=== PATIENT | female | born 1995 | race African-American/Black ===

== ENCOUNTER 2016-03-23 15:34 | Emergency (ER) | payer MEDICAID ==
[~2016-03-23 15:34] MED LIST: DEPO150I IM
[2016-03-23 15:36] VITALS: BP 125/72; PULSE 100; RESP 12; TEMP 98.1; O2SAT 100
--- NOTE | 2016-03-23 17:08 | PD ---
HPI Chief Complaint: Skin Problem Time Seen by Provider: 17:04 Travel History International Travel<30 days: No Contact w/Intl Traveler<30days: No Traveled to known affect area: No History of Present Illness HPI Patient comes in complaining of painful bump in the cleft of her buttocks on the right. Patient states she first noticed it about a week ago has become larger more painful. Pain is worse with sitting or palpation. She denies anything making it better or radiation. Patient states she took some leftover amoxicillin as well as ibuprofen with minimal to no relief of her symptoms. Patient states she's had something like since past several years ago but does not recall if it had to be cut open at that time. PFSH Past Medical History Medical History: Denies Significant Hx Developmental Delay: No Immunizations Current: Yes ?: Not Past Surgical History Abdominal Surgery: Yes (UMBILICAL HERNIA REPAIR) Social History Alcohol Use: No Tobacco Use: No Substance Use: No Allergies-Medications (Allergen,Severity, Reaction): Coded Allergies: Morphine (Verified Adverse Reaction, Intermediate, itchyness, 03/23/16) Reported Meds & Prescriptions Reported Meds & Active Scripts Active [place] (Hydrocodone-Acetaminophen) 5-325 mg Tab 1 Tab PO Q8HR PRN Naprosyn (Naproxen) 500 Mg Tab 500 Mg PO Q12HR PRN Bactrim DS (Sulfamethoxazole-Trimethoprim) 800-160 Mg Tab 1 Tab PO BID Review of Systems Except as stated in HPI: all other systems reviewed are Neg Physical Exam Narrative GENERAL: Well-developed, overly nourished, in no acute distress, and non-ill appearing. SKIN: Warm and dry. Draining pilonidal cyst noted just right to the cleft of the buttocks. It is tender to palpation with mild induration. There is fluctuation drainage noted. His exam was performed presence of a female nurse at all times. HEAD: Atraumatic. Normocephalic. EYES: Pupils equal and round. EOMI. No scleral icterus. No injection or drainage. ENT: No nasal bleeding or discharge. Mucous membranes pink and moist. NECK: Trachea midline. Supple. No nuclear rigidity. RESPIRATORY: No accessory muscle use. No respiratory distress. MUSCULOSKELETAL: No obvious deformities. No clubbing. No cyanosis. No edema. Full range of motion. NEUROLOGICAL: Awake and alert. No obvious cranial nerve deficits. Motor grossly within normal limits. Normal speech. PSYCHIATRIC: Appropriate mood and affect; insight and judgment normal. Data Data Last Documented VS Vital Signs Date Time Temp Pulse Resp B/P Pulse Ox O2 Delivery O2 Flow Rate FiO2 03/23/16 15:36 98.1 100 12 125/72 100 Room Air Orders Wound Culture And Gram Stain (03/23/16 16:59) MDM Medical Decision Making Medical Screen Exam Complete: Yes Emergency Medical Condition: Yes Differential Diagnosis Pilonidal cyst, pilonidal abscess, abscess, cellulitis, other Narrative Course Patient in no obvious distress upon re-evaluation. Patient was asked if they wanted to speak to my attending, which the patient did not wish to do at this time. Any questions/concerns in reference to patient diagnosis/condition discussed and clarified prior to patient's discharge. Reinforced sheer importance of close follow up with patient's primary physician or primary care clinic. Instructed patient to return to ED immediately, if symptoms return/ worsen. Pt showed understanding of above instructions. Further instructions and recommendations were detailed in discharge paperwork. Pt ambulated without difficulty out of ED at discharge. Diagnosis Primary Impression: Pilonidal cyst Referrals: Hero Acosta MD Patient Instructions: General Instructions, Pilonidal Cyst (ED) Additional Instructions: Follow-up with your primary care physician or return here in 2 days for recheck. Follow up with general surgeon or a colorectal surgeon for definitive treatment. Take all medication as prescribed. Apply warm compresses to affected area to continue to facilitate drainage. Return to the emergency department if symptoms get worse. Med/Other Pt SpecificInfo: Prescription(s) given Scripts Hydrocodone-Acetaminophen ([place])5-325 mg Tab1 Tab PO Q8HR PRN (PAIN GREATER THAN 7) #7 TAB Ref 0 Prov:Glen Gil MD 03/23/16 Naproxen (Naprosyn)500 Mg [id number] Mg PO Q12HR PRN (PAIN SCALE 1 TO 10) #14 TAB Ref 0 Prov:Glen Gil MD 03/23/16 Sulfamethoxazole-Trimethoprim (Bactrim DS)800-160 Mg Tab1 Tab PO BID #20 TAB Ref 0 Prov:Glen Gil MD 03/23/16 Disposition: 01 DISCHARGE HOME Condition: Stable Jose Roberto Sarmiento Mar 23, 2016 17:08
[2016-03-23] MEDS ORDERED: NAPR500 PO (17:09)
[2016-03-23] MEDS ORDERED: NORC5TAB PO (17:09)
[2016-03-23] MEDS ORDERED: BACT800T5 PO (17:09)
[2016-05-20] MEDS ORDERED: DEPO150I IM (15:44)
[2016-08-13] MEDS ORDERED: DEPO150I IM ×2 (14:26→14:27)
[2016-08-14] MEDS ORDERED: DEPO150I IM (10:45)
== END 2016-03-23 17:50 | disposition home or self-care (01) ==
LOC: NEPB 15:34
DX: L05.91 Pilonidal cyst without abscess (principal)
CPT/HCPCS: 86403; 87070; 99283

== ENCOUNTER 2016-05-14 10:16 | Emergency (ER) | payer MEDICAID ==
[~2016-05-14] VITALS: Ht 170.2 cm; Wt 100.0 kg
[~2016-05-14 10:16] MED LIST changes: +BACT800T5 PO; -DEPO150I IM; +NAPR500 PO; +NORC5TAB PO
[2016-05-14 10:19] VITALS: BP 118/74; PULSE 90; RESP 20; TEMP 98.1; O2SAT 97
[2016-05-14] MEDS ORDERED: FLUT1SPR9 EACH NARE (11:23)
[2016-05-14] MEDS ORDERED: AMOX875T PO (11:23)
--- NOTE | 2016-05-14 11:27 | PD ---
HPI Chief Complaint: Cold / Flu Symptoms Time Seen by Provider: 11:28 Travel History International Travel<30 days: No Contact w/Intl Traveler<30days: No Traveled to known affect area: No History of Present Illness HPI 20-year-old Afro-[place]ic female presents the emergency department with approximately 5 day history of upper respiratory symptoms including head congestion, headache, postnasal drip, sore throat, ear pain, decreased hearing bilaterally. Patient has had a cough Especially when she lays down at night. Patient denies shortness of breath or wheezing, and denies nausea, vomiting, diarrhea. Patient is allergic to morphine. PFSH Past Medical History Developmental Delay: No Immunizations Current: Yes Past Surgical History Abdominal Surgery: Yes (UMBILICAL HERNIA REPAIR) Social History Alcohol Use: No Tobacco Use: No Substance Use: No Allergies-Medications (Allergen,Severity, Reaction): Coded Allergies: Morphine (Verified Adverse Reaction, Intermediate, itchyness, 05/14/16) Reported Meds & Prescriptions Reported Meds & Active Scripts Active Flonase Allergy Relief Children Nasal [place] (Fluticasone Nasal [place]) 50 Mcg/ Act [place] 2 [place] EACH NARE DAILY 50 mcg/spray Amoxicillin 875 Mg Tab 875 Mg PO BID [place] (Hydrocodone-Acetaminophen) 5-325 mg Tab 1 Tab PO Q8HR PRN Naprosyn (Naproxen) 500 Mg Tab 500 Mg PO Q12HR PRN Bactrim DS (Sulfamethoxazole-Trimethoprim) 800-160 Mg Tab 1 Tab PO BID Review of Systems Except as stated in HPI: all other systems reviewed are Neg General / Constitutional: No: Fever, Chills Eyes: No: Visual changes HENT: Positive: Headaches, Sore Throat, Rhinitis, Rhinorrhea, Congestion, Earache, No: Vertigo, Lightheadedness, Nosebleed, Neck Stiffness, Neck Pain, Gingival Bleeding, Dental Difficulties, Ear Discharge Cardiovascular: No: Chest Pain or Discomfort Respiratory: Positive: Cough, No: Shortness of Breath, Wheezing, Sneezing Gastrointestinal: No: Nausea, Vomiting, Diarrhea, Abdominal Pain Genitourinary: No: Dysuria Musculoskeletal: No: Pain Skin: No Rash Neurologic: No: Weakness Psychiatric: No: Depression Endocrine: No: Polydipsia Hematologic/Lymphatic: No: Easy Bruising Physical Exam Narrative GENERAL: Patient appears ill but not septic. SKIN: Warm and dry. Normal color. Normal turgor. HEAD: Atraumatic. Normocephalic. EYES: Pupils equal and round. No scleral icterus. No injection or drainage. ENT: No nasal bleeding or discharge. Mucous membranes pink and moist. Patient is sinus tenderness in both frontal and maxillary sinuses. TMs are dull red and bulging bilaterally. There is no perforation. Pharynx appears cobblestoned and inflamed with postnasal drip present. Airway is patent. Uvula is midline. No significant tonsillitis. NECK: Trachea midline. Supple and nontender without significant lymphadenopathy. CARDIOVASCULAR: Regular rate and rhythm. RESPIRATORY: No accessory muscle use. Clear to auscultation. Breath sounds equal bilaterally. MUSCULOSKELETAL: Extremities without clubbing, cyanosis, or edema. No obvious deformities. NEUROLOGICAL: Awake and alert. No obvious cranial nerve deficits. Motor grossly within normal limits. Five out of 5 muscle strength in the arms and legs. Normal speech. PSYCHIATRIC: Appropriate mood and affect; insight and judgment normal. Data Data Last Documented VS Vital Signs Date Time Temp Pulse Resp B/P Pulse Ox O2 Delivery O2 Flow Rate FiO2 05/14/16 10:19 98.1 90 20 118/74 97 Room Air MDM Medical Decision Making Medical Screen Exam Complete: Yes Emergency Medical Condition: Yes Differential Diagnosis Upper extremity infection. Sinusitis. Otitis media. Cerumen impaction. Narrative Course Patient is medically stable at time of exam. Patient treated for sinusitis and otitis media with amoxicillin 875 twice a day 10 days. Patient is to use Flonase nasal spray 2 sprays each nostril daily as well. Patient take idnu-nhq-jumnina decongestant such as Sudafed to help with her congestion. Patient should follow-up with her primary care physician if symptoms do not improve or return to emergency department as needed. Diagnosis Primary Impression: Sinusitis Qualified Code: J01.40 - Acute non-recurrent pansinusitis Additional Impression: Otitis media Qualified Code: H66.003 - Acute suppurative otitis media of both ears without spontaneous rupture of tympanic membranes, recurrence not specified Referrals: Primary Care Physician Patient Instructions: General Instructions, Otitis Media (ED), Sinusitis (ED) Additional Instructions: Patient treated for sinusitis and otitis media with amoxicillin 875 twice a day 10 days. Patient is to use Flonase nasal spray 2 sprays each nostril daily as well. Patient take qqtb-pkh-gbtzbro decongestant such as Sudafed to help with her congestion. Patient should follow-up with her primary care physician if symptoms do not improve or return to emergency department as needed. Med/Other Pt SpecificInfo: Prescription(s) given Scripts Fluticasone Nasal [place] (Flonase Allergy Relief Children Nasal [place])50 Mcg/Act Spray2 [place] EACH NARE DAILY #1 BOTTLE 50 mcg/spray Prov:Kai Iraheta MD 05/14/16 Amoxicillin 875 Mg [id number] Mg PO BID #20 TAB Prov:Kai Iraheta MD 05/14/16 Disposition: 01 DISCHARGE HOME Condition: Stable Agus Reagan May 14, 2016 11:27
[2016-05-20] MEDS ORDERED: DEPO150I IM (15:44)
[2016-08-13] MEDS ORDERED: DEPO150I IM ×2 (14:26→14:27)
[2016-08-14] MEDS ORDERED: DEPO150I IM (10:45)
== END 2016-05-14 11:36 | disposition home or self-care (01) ==
LOC: NEPB 10:16
DX: J32.9 Chronic sinusitis, unspecified (principal); H66.93 Otitis media, unspecified, bilateral
CPT/HCPCS: 99283

== ENCOUNTER 2016-07-15 11:43 | Emergency (ER) | payer MEDICAID, OTHER ==
[~2016-07-15] VITALS: Ht 170.2 cm; Wt 91.0 kg
[~2016-07-15 11:43] MED LIST changes: +AMOX875T PO; +FLUT1SPR9 EACH NARE
[2016-07-15 11:45] VITALS: BP 130/75; PULSE 118; RESP 17; TEMP 98.2; O2SAT 98
--- NOTE | 2016-07-15 11:47 | PD ---
Physical Exam Time Seen by Provider: 11:45 Narrative 20 y/o female presents for evaluation of 1 day duration of generalized abdominal pain, nausea and vomiting. Vital signs reviewed. Seen at triage desk. Awaiting bed placement. Data Data Last Documented VS Vital Signs Date Time Temp Pulse Resp B/P Pulse Ox O2 Delivery O2 Flow Rate FiO2 07/15/16 11:45 98.2 118 17 130/75 98 MDM Medical Record Reviewed: Yes Supervised Visit with JESSICA: Jesus Briscoe July 15, 2016 11:47
[2016-07-15] MEDS ORDERED: SODIUM CHLOR 0.9% 1000 ML INJ 1,000 ML IV SCH (12:28)
[2016-07-15] MEDS ORDERED: SODIUM CHLORIDE 0.9% FLUSH 10 ML FLUSH IV FLUSH PRN (12:30)
[2016-07-15] MEDS ORDERED: KETOROLAC TROMETHAMINE 30 MG/ML (IVP) VIAL IVP ONE (12:30)
[2016-07-15] MEDS ORDERED: ONDANSETRON HCL 4 MG/2 ML VIAL IVP ONE (12:30)
[2016-07-15] MEDS ORDERED: HYDROmorphone HCL PF 1 MG/ML VIAL IVS ONE (12:30)
[2016-07-15 12:32] VITALS: RESP 16; O2SAT 99
--- NOTE | 2016-07-15 12:33 | PD ---
HPI Chief Complaint: Abdominal Pain Time Seen by Provider: 12:07 Travel History International Travel<30 days: No Contact w/Intl Traveler<30days: No Traveled to known affect area: No History of Present Illness HPI The patient is a 20-year-old after Citizen Of [place] female who presents emergency department for nausea, vomiting, and right upper quadrant abdominal pain. The patient states her symptoms started yesterday afternoon with right upper quadrant abdominal pain. The patient then developed nausea and subsequent vomiting last night. The pain is located mostly in epigastrium and right upper quadrant, nonradiating, this issue nausea/vomiting. The patient denies any diarrhea, dysuria, frequency, urgency, or vaginal discharge. The patient's last mental cycle was 3-4 months ago, she does not have menstrual cycles normally, as she is currently on Depo. The patient denies . The patient denies any previous abdominal surgeries. She denies any associated fever, chills, or sweats. Symptoms are moderate without any alleviating or exacerbating factors. PFSH Past Medical History Developmental Delay: No Diminished Hearing: No Genitourinary: Yes (HX UTI) Immunizations Current: Yes Tetanus Vaccination: < 5 Years Influenza Vaccination: No ?: Not LMP: 02/2016 : 1 Para: 1 Past Surgical History Abdominal Surgery: Yes (UMBILICAL HERNIA REPAIR) Social History Alcohol Use: No Tobacco Use: No Substance Use: No Allergies-Medications (Allergen,Severity, Reaction): Coded Allergies: Morphine (Verified Allergy, Intermediate, ITCHING, 07/15/16) Reported Meds & Prescriptions Reported Meds & Active Scripts Active No Active Prescriptions or Reported Medications Review of Systems Except as stated in HPI: all other systems reviewed are Neg General / Constitutional: No: Fever Cardiovascular: No: Chest Pain or Discomfort Respiratory: No: Shortness of Breath Gastrointestinal: Positive: Nausea, Vomiting, Abdominal Pain, No: Diarrhea Genitourinary: No: Dysuria, Discharge, Vaginal Bleeding Musculoskeletal: No: Myalgias, Arthralgias Skin: No Rash Physical Exam Narrative GENERAL: Awake, alert, pleasant 20-year-old female who appears her stated age and is in no acute respiratory distress. SKIN: Focused skin assessment warm/dry. HEAD: Atraumatic. Normocephalic. EYES: No injection or drainage. ENT: No nasal bleeding or discharge. Mucous membranes pink and moist. NECK: Trachea midline. No JVD. CARDIOVASCULAR: Regular rate and rhythm. No murmur appreciated. RESPIRATORY: No accessory muscle use. Clear to auscultation. Breath sounds equal bilaterally. GASTROINTESTINAL: Abdomen soft, tender palpation right upper quadrant and epigastrium. No rebound tenderness, guarding, or rigidity. Back: No CVA tenderness. MUSCULOSKELETAL: No obvious deformities. No clubbing. No cyanosis. No edema. NEUROLOGICAL: Awake and alert. No obvious cranial nerve deficits. Motor grossly within normal limits. Normal speech. PSYCHIATRIC: Appropriate mood and affect; insight and judgment normal. Data Data Last Documented VS Vital Signs Date Time Temp Pulse Resp B/P Pulse Ox O2 Delivery O2 Flow Rate FiO2 07/15/16 14:18 98.1 78 16 113/74 100 Room Air Orders Complete Blood Count With Diff (07/15/16 12:28) Comprehensive Metabolic Panel (07/15/16 12:28) Lipase (07/15/16 12:28) Urinalysis - C+S If Indicated (07/15/16 12:28) Iv Access Insert/Monitor (07/15/16 12:28) Ecg Monitoring (07/15/16 12:28) Oximetry (07/15/16 12:28) Ondansetron Inj (Zofran Inj) (07/15/16 12:30) Sodium Chlor 0.9% 1000 Ml Inj (Ns 1000 M (07/15/16 12:28) Sodium Chloride 0.9% Flush (Ns Flush) (07/15/16 12:30) Ketorolac Inj (Toradol Inj) (07/15/16 12:30) Hydromorphone Pf Inj (Dilaudid Pf Inj) (07/15/16 12:30) Ed Urine Pregnancytest Poc (07/15/16 12:28) Us Abdomen Gallbladder (07/15/16 ) Urine Culture (07/15/16 12:00) Labs Laboratory Tests Test 07/15/16 07/15/16 12:00 12:30 Urine Color YELLOW Urine Turbidity CLOUDY Urine pH 6.0 Urine Specific [place] 1.039 Urine Protein 30 mg/dL Urine Glucose (UA) NEG mg/dL Urine Ketones NEG mg/dL Urine Occult Blood TRACE Urine Nitrite NEG Urine Bilirubin NEG Urine Urobilinogen LESS THAN 2.0 MG/DL Urine Leukocyte Esterase TRACE Urine RBC 2 /hpf Urine WBC 6 /hpf Urine Squamous Epithelial 7 /hpf Cells Urine Transitional Epithelial <1 /hpf Cells Urine Amorphous Sediment FEW Urine Bacteria MOD /hpf Urine Mucus MANY /lpf Microscopic Urinalysis Comment CULTURE INDICATED White Blood Count 10.7 TH/MM3 Red Blood Count 5.09 MIL/MM3 Hemoglobin 12.4 GM/DL Hematocrit 37.7 % Mean Corpuscular Volume 74.1 FL Mean Corpuscular Hemoglobin 24.3 PG Mean Corpuscular Hemoglobin 32.8 % Concent Red Cell Distribution Width 18.1 % Platelet Count 270 TH/MM3 Mean Platelet Volume 9.6 FL Neutrophils (%) (Auto) 87.6 % Lymphocytes (%) (Auto) 8.6 % Monocytes (%) (Auto) 2.7 % Eosinophils (%) (Auto) 0.7 % Basophils (%) (Auto) 0.4 % Neutrophils # (Auto) 9.4 TH/MM3 Lymphocytes # (Auto) 0.9 TH/MM3 Monocytes # (Auto) 0.3 TH/MM3 Eosinophils # (Auto) 0.1 TH/MM3 Basophils # (Auto) 0.0 TH/MM3 CBC Comment AUTO DIFF Differential Total Cells 100 Counted Neutrophils % (Manual) 81 % Band Neutrophils % 9 % Lymphocytes % 7 % Monocytes % 3 % Neutrophils # (Manual) 9.6 TH/MM3 Differential Comment FINAL DIFF MANUAL Platelet Estimate NORMAL Platelet Morphology Comment NORMAL Sodium Level 139 MEQ/L Potassium Level 3.9 MEQ/L Chloride Level 106 MEQ/L Carbon Dioxide Level 20.9 MEQ/L Anion Gap 12 MEQ/L Blood Urea Nitrogen 12 MG/DL Creatinine 0.76 MG/DL Estimat Glomerular Filtration 117 ML/MIN Rate Random Glucose 92 MG/DL Calcium Level 9.4 MG/DL Total Bilirubin 0.4 MG/DL Aspartate Amino Transf 19 U/L (AST/SGOT) Alanine Aminotransferase 40 U/L (ALT/SGPT) Alkaline Phosphatase 107 U/L Total Protein 9.3 GM/DL Albumin 4.2 GM/DL Lipase 93 U/L [facility] Medical Decision Making Medical Screen Exam Complete: Yes Emergency Medical Condition: Yes Medical Record Reviewed: Yes Interpretation(s) Bedside urine test is negative Laboratory Tests Test 07/15/16 07/15/16 12:00 12:30 Urine Color YELLOW Urine Turbidity CLOUDY Urine pH 6.0 Urine Specific [place] 1.039 Urine Protein 30 mg/dL Urine Glucose (UA) NEG mg/dL Urine Ketones NEG mg/dL Urine Occult Blood TRACE Urine Nitrite NEG Urine Bilirubin NEG Urine Urobilinogen LESS THAN 2.0 MG/DL Urine Leukocyte Esterase TRACE Urine RBC 2 /hpf Urine WBC 6 /hpf Urine Squamous Epithelial 7 /hpf Cells Urine Transitional Epithelial <1 /hpf Cells Urine Amorphous Sediment FEW Urine Bacteria MOD /hpf Urine Mucus MANY /lpf Microscopic Urinalysis Comment CULTURE INDICATED White Blood Count 10.7 TH/MM3 Red Blood Count 5.09 MIL/MM3 Hemoglobin 12.4 GM/DL Hematocrit 37.7 % Mean Corpuscular Volume 74.1 FL Mean Corpuscular Hemoglobin 24.3 PG Mean Corpuscular Hemoglobin 32.8 % Concent Red Cell Distribution Width 18.1 % Platelet Count 270 TH/MM3 Mean Platelet Volume 9.6 FL Neutrophils (%) (Auto) 87.6 % Lymphocytes (%) (Auto) 8.6 % Monocytes (%) (Auto) 2.7 % Eosinophils (%) (Auto) 0.7 % Basophils (%) (Auto) 0.4 % Neutrophils # (Auto) 9.4 TH/MM3 Lymphocytes # (Auto) 0.9 TH/MM3 Monocytes # (Auto) 0.3 TH/MM3 Eosinophils # (Auto) 0.1 TH/MM3 Basophils # (Auto) 0.0 TH/MM3 CBC Comment AUTO DIFF Differential Total Cells 100 Counted Neutrophils % (Manual) 81 % Band Neutrophils % 9 % Lymphocytes % 7 % Monocytes % 3 % Neutrophils # (Manual) 9.6 TH/MM3 Differential Comment FINAL DIFF MANUAL Platelet Estimate NORMAL Platelet Morphology Comment NORMAL Sodium Level 139 MEQ/L Potassium Level 3.9 MEQ/L Chloride Level 106 MEQ/L Carbon Dioxide Level 20.9 MEQ/L Anion Gap 12 MEQ/L Blood Urea Nitrogen 12 MG/DL Creatinine 0.76 MG/DL Estimat Glomerular Filtration 117 ML/MIN Rate Random Glucose 92 MG/DL Calcium Level 9.4 MG/DL Total Bilirubin 0.4 MG/DL Aspartate Amino Transf 19 U/L (AST/SGOT) Alanine Aminotransferase 40 U/L (ALT/SGPT) Alkaline Phosphatase 107 U/L Total Protein 9.3 GM/DL Albumin 4.2 GM/DL Lipase 93 U/L Last Impressions Gall Bladder Ultrasound 07/15/16 0000 Signed Impressions: Service Date/Time: Friday, July 15, 2016 14:29 - CONCLUSION: Normal examination. John Sandy MD Differential Diagnosis Differential diagnosis includes gastritis, pancreatitis, peptic ulcer disease, biliary colic, choledocholithiasis, cholecystitis, UTI, pyelonephritis. Narrative Course IV was established, labs are drawn and sent, and the patient was placed on cardiac telemetry monitoring and continuous pulse oximetry monitoring. The patient was administered Dilaudid 0.5 mg intravenously, Toradol 30 mg intravenously, Zofran, and IV fluids. Bedside UA test was obtained and UA was sent to lab. Ultrasound of the gallbladder was obtained. The patient's white count is normal, there is bandemia, UA reveals extensive PVCs, LFTs and lipase are normal. Ultrasound is negative. The patient is reevaluated , her pain had significantly improved, but was returned and slowly. Therefore, the patient was administered a second dose of pain medications. The patient's abdominal exam is benign, the patient be discharged home on pain medications and Zantac. She is advised to follow-up with her primary physician and return if symptoms worsen or progress. Diagnosis Primary Impression: Abdominal pain Qualified Code: R10.10 - Pain of upper abdomen Patient Instructions: General Instructions Additional Instructions: Medications as directed. Follow-up with your primary physician. Return if symptoms worsen or progress. Med/Other Pt SpecificInfo: Prescription(s) given Scripts Hydrocodone-Acetaminophen ([place])5-325 mg Tab1 Tab PO Q6H PRN (PAIN) #12 TAB Ref 0 Prov:Glen Gil MD 07/15/16 Ranitidine (Zantac)150 Mg [id number] Mg PO BID #20 TAB Ref 0 Prov:Glen Gil MD 07/15/16 Dicyclomine (Bentyl)20 Mg Tab20 Mg PO QID #12 TAB Ref 0 Prov:Glen Gil MD 07/15/16 Disposition: 01 DISCHARGE HOME Condition: Stable Glen Gil MD July 15, 2016 12:33
[2016-07-15 12:49] VITALS: BP 117/79; PULSE 85; RESP 16; O2SAT 98
[2016-07-15 12:58] LABS: AUTOMATED NEUTROPHIL # 9.4 TH/MM3 (1.8-7.7); BASOPHIL % 0.4 % (0.0-2.0); EOSINOPHIL # 0.1 TH/MM3 (0-0.4); EOSINOPHIL % 0.7 % (0.0-4.0); HEMATOCRIT 37.7 % (35.0-46.0); LYMPH % 8.6 % (9.0-44.0); LYMPHOCYTE # 0.9 TH/MM3 (1.0-4.8); MEAN CELL VOLUME 74.1 FL (80.0-100.0); MEAN CORPUSCULAR HEMOGLOBIN 24.3 PG (27.0-34.0); MEAN CORPUSCULAR HGB CONC 32.8 % (32.0-36.0); MONO % 2.7 % (0.0-8.0); NEUT % 87.6 % (16.0-70.0); PLATELET COUNT 270 TH/MM3 (150-450); RED BLOOD COUNT 5.09 MIL/MM3 (4.00-5.30); RED CELL DISTRIBUTION WIDTH 18.1 % (11.6-17.2); WHITE BLOOD COUNT 10.7 TH/MM3 (4.0-11.0)
[2016-07-15 13:01] LABS: HEMO FLAGS AUTO DIFF
[2016-07-15 13:15] LABS: BACTERIA, URINE MOD /hpf; BLOOD, URINE TRACE (NEG); COMMENT (UR) CULTURE INDICATED; CULTURE IF INDICATED CULTURE INDICATED; GLUCOSE,URINE NEG (NEG); KETONE, URINE NEG (NEG); MUCUS URINE MANY /lpf (OCC); NITRITE,URINE NEG (NEG); SQUAMOUS EPITHELIAL CELL URINE 7 /hpf (0-5); TRANSITIONAL EPI CELLS, URINE <1 /hpf; URINE COLOR YELLOW (YELLW/STRAW)
[2016-07-15 13:27] LABS: ANION GAP 12 MEQ/L (5-15); AST (GOT) 19 U/L (16-38); BICARBONATE 20.9 MEQ/L (21.0-32.0); BLOOD UREA NITROGEN 12 MG/DL (7-18); CHLORIDE 106 MEQ/L (98-107); GLOMERULAR FILTRATION RATE 117 ML/MIN (>89); POTASSIUM 3.9 MEQ/L (3.5-5.1); SODIUM (NA) 139 MEQ/L (136-145)
[2016-07-15 13:30] LABS: ALKALINE PHOSPHATASE 107 U/L (45-117); ALT (GPT) 40 U/L (9-42); TOTAL BILIRUBIN ADULT 0.4 MG/DL (0.2-1.0)
[2016-07-15 13:44] LABS: BANDS 9 % (0-6); NEUTROPHIL # MANUAL DIFF 9.6 TH/MM3 (1.8-7.7); PLATELET ESTIMATE SMEAR NORMAL (NORMAL); PLATELET MORPHOLOGY NORMAL (NORMAL); POLYS (SEG NEUTROPHILS) 81 % (16-70); SCAN/DIFF FINAL DIFF MANUAL; WBC DIFF SAMPLE 100
[2016-07-15 14:18] VITALS: BP 113/74; PULSE 78; RESP 16; TEMP 98.1; O2SAT 100
--- NOTE | 2016-07-15 15:25 | RADRPT ---
EXAM DATE/TIME: 07/15/2016 14:29 [place] COMPARISON: No previous studies available for comparison. INDICATIONS : Right upper quadrant pain. MEDICAL HISTORY : Hernia, umbilical. UTI. SURGICAL HISTORY : Umbilical hernia repair. ENCOUNTER: Initial ACUITY: 2 days PAIN SCORE: 8/10 LOCATION: Right upper quadrant MEASUREMENTS: LIVER: 17.8 cm length COMMON DUCT: 2 mm RIGHT KIDNEY: 11.7 x 6.1 x 4.2 cm FINDINGS: LIVER: Normal echotexture without focal lesion or ductal dilatation. COMMON DUCT: No intraluminal mass or stone visualized. GALLBLADDER: Contains no stones, demonstrates no wall thickening or pericholecystic fluid. PANCREAS: The visualized portions are within normal limits. RIGHT KIDNEY: No evidence of hydronephrosis, stone, or mass. CONCLUSION: Normal examination. John Sandy MD on July 15, 2016 at 15:22 Board Certified Radiologist. This report was verified electronically.
[2016-07-15] MEDS ORDERED: NORC5TAB PO (16:29)
[2016-07-15] MEDS ORDERED: BENT20TA PO (16:29)
[2016-07-15] MEDS ORDERED: ZANT150T2 PO (16:29)
[2016-07-15] MEDS ORDERED: HYDROmorphone HCL PF 1 MG/ML VIAL IV PUSH ONE (16:30)
[2016-07-15] MEDS ORDERED: ONDANSETRON HCL 4 MG/2 ML VIAL IV PUSH ONE (16:30)
[2016-07-15 16:49] VITALS: BP 117/62; PULSE 107; RESP 17; O2SAT 99
[2016-07-15 19:00] VITALS: BP 111/62; PULSE 98; RESP 14; TEMP 98.4; O2SAT 100
[2016-08-13] MEDS ORDERED: DEPO150I IM ×2 (14:26→14:27)
[2016-08-14] MEDS ORDERED: DEPO150I IM (10:45)
== END 2016-07-15 19:18 | disposition home or self-care (01) ==
LOC: NEPE 11:43
DX: R10.11 Right upper quadrant pain (principal); R11.2 Nausea with vomiting, unspecified
CPT/HCPCS: 76705; 80053; 81001; 83690; 84703; 85007; 85027; 87086; 96361; 96374; 96375; 96376; 99284; J1170; J1885; J2405; J7030

== ENCOUNTER 2016-07-31 09:05 | Emergency (ER) | payer MEDICAID, OTHER ==
[~2016-07-31] VITALS: Ht 170.2 cm; Wt 80.0 kg
[~2016-07-31 09:05] MED LIST changes: -AMOX875T PO; -BACT800T5 PO; +BENT20TA PO; -FLUT1SPR9 EACH NARE; -NAPR500 PO; +ZANT150T2 PO
[2016-07-31 09:07] VITALS: BP 132/73; PULSE 108; RESP 16; TEMP 98.6; O2SAT 99
--- NOTE | 2016-07-31 09:23 | PD ---
HPI . Left foot pain for 3-4 days Chief Complaint: Pain: Acute or Chronic Time Seen by Provider: 09:23 Travel History International Travel<30 days: No Contact w/Intl Traveler<30days: No Traveled to known affect area: No History of Present Illness HPI 20-year-old female with no past medical history here with complaints of left foot pain for 3-4 days. Patient denies any injury. She says her foot started hurting out of the blue. She reports the pain in her left toes. She has been wearing a foot brace that is too tight and causing worsening swelling. She tells me that the swelling was present prior to wearing a foot brace. She denies any fever or chills. She is accompanied by her boyfriend Derek. PFSH Past Medical History Developmental Delay: No Diminished Hearing: No Genitourinary: Yes (HX UTI) Hiatal Hernia: Yes Immunizations Current: Yes Tetanus Vaccination: Unknown Influenza Vaccination: No ?: Not LMP: MARCH 2016 : 1 Para: 1 Past Surgical History Abdominal Surgery: Yes (UMBILICAL HERNIA REPAIR) Social History Alcohol Use: No Tobacco Use: No Substance Use: No Allergies-Medications (Allergen,Severity, Reaction): Coded Allergies: Morphine (Verified Allergy, Intermediate, ITCHING, 07/31/16) Reported Meds & Prescriptions Reported Meds & Active Scripts Active Medrol Dosepak (Methylprednisolone) 4 Mg Dspk 4 Mg PO DIRECTED Per Pharmacist direction Reported Ibuprofen 200 Mg Tab 200 Mg PO Q6H PRN Review of Systems General / Constitutional: No: Fever Eyes: No: Visual changes HENT: No: Headaches Cardiovascular: No: Chest Pain or Discomfort Respiratory: No: Shortness of Breath Gastrointestinal: No: Abdominal Pain Genitourinary: No: Dysuria Musculoskeletal: Positive: Pain (left foot) Skin: No Rash Neurologic: No: Weakness Psychiatric: No: Depression Endocrine: No: Polydipsia Hematologic/Lymphatic: No: Easy Bruising Physical Exam Narrative GENERAL: AAO x 3, no acute distress, Well-nourished, well-developed patient. SKIN: Warm and dry. No visible rashes or bruising. left foot, no erythema or ecchymosis, no temperature difference from right foot HEAD: Normocephalic and atraumatic. EYES: No scleral icterus. No injection or drainage. EOM intact, PERRLA ENT: No nasal drainage noted. Mucous membranes pink. Airway patent. NECK: Supple, trachea midline. No JVD. CARDIOVASCULAR: Regular rate and rhythm without murmurs, gallops, or rubs. RESPIRATORY: Breath sounds equal bilaterally. No accessory muscle use. No rhonchi or rales. GASTROINTESTINAL: Abdomen soft, non-tender, nondistended. EXTREMITIES: No cyanosis left foot: mild trace edema due to brace being too tight, non pitting,; decreased ROM of toes due to pain, pedal pulse normal, ankle rotation and movement normal. pain only in toes, dorsi/plantar flexion normal; right foot normal examination NEURO: strength in foot normal; BACK: Nontender without obvious deformity. No CVA tenderness. PSYCH: AAO x 3, normal affect. Data Data Last Documented VS Vital Signs Date Time Temp Pulse Resp B/P Pulse Ox O2 Delivery O2 Flow Rate FiO2 07/31/16 09:07 98.6 108 16 132/73 99 Orders Foot, Complete ([id number]) (07/31/16 09:27) Ibuprofen (Motrin) (07/31/16 09:30) Shoe Post Op (07/31/16 ) MDM Medical Decision Making Medical Screen Exam Complete: Yes Emergency Medical Condition: Yes Medical Record Reviewed: Yes Differential Diagnosis Toe contusion, toe fracture, gout, less likely sprain, less likely cellulitis Narrative Course This is a 20-year-old female here with complaints of left foot pain. It is primarily located in her toes. There is significant point tenderness on examination and decreased range of motion due to pain. I will go ahead and check an x-ray to rule out any type of bony abnormality. I do not suspect any. It's possible that this may be a case of gout. If x-rays negative, I will treat her with course of steroids. X-rays negative for any acute abnormality. I discussed with patient. I provided her with some prednisone and a postop shoe. Advise follow-up primary care provider. Patient verbalized understanding of instructions, questions were answered, and thanked me for their care. I advised them if their condition worsens, please return to the nearest emergency room for further care. Diagnosis Primary Impression: Toe pain, left Patient Instructions: General Instructions Additional Instructions: Please return to emergency department if your symptoms return or worsen. Follow up with your primary care provider. Take medications as prescribed. Med/Other Pt SpecificInfo: Prescription(s) given Scripts Methylprednisolone Dosepak (Medrol Dosepak)4 Mg Dspk4 Mg PO DIRECTED #1 DSPK Ref 0 Per Pharmacist direction Prov:Favian Doherty MD 07/31/16 Disposition: 01 DISCHARGE HOME Condition: Stable Arabella Martel July 31, 2016 09:23
[2016-07-31] MEDS ORDERED: IBUP200T2 PO (09:28)
[2016-07-31] MEDS ORDERED: IBUPROFEN 800 MG TAB PO ONE (09:30)
--- NOTE | 2016-07-31 10:08 | RADRPT ---
EXAM DATE/TIME: 07/31/2016 09:45 [facility] COMPARISON: No previous studies available for comparison. INDICATIONS : Pain with swelling entire foot. MEDICAL HISTORY : None. SURGICAL HISTORY : None. ENCOUNTER: Initial ACUITY: 3 days PAIN SCORE: 10/10 LOCATION: Left foot FINDINGS: Three view examination of the left foot demonstrates no soft tissue swelling, dislocation, or fractur e. The tarsal bones appear intact. The interphalangeal and metatarsophalangeal joints are intact. The calcaneus is intact. Bony mineralization is normal. CONCLUSION: 1. Negative examination of the foot. Julián Juan MD on July 31, 2016 at 10:06 Board Certified Radiologist. This report was verified electronically.
[2016-07-31] MEDS ORDERED: MEDR4PAK PO (10:11)
[2016-08-13] MEDS ORDERED: DEPO150I IM ×2 (14:26→14:27)
[2016-08-14] MEDS ORDERED: DEPO150I IM (10:45)
== END 2016-07-31 10:33 | disposition home or self-care (01) ==
LOC: NEPK 09:05
DX: M79.675 Pain in left toe(s) (principal)
CPT/HCPCS: 73630; 99283; L3260

== ENCOUNTER 2017-01-14 10:40 | Emergency (ER) | payer MEDICAID, OTHER ==
[~2017-01-14] VITALS: Ht 170.2 cm; Wt 100.0 kg
[~2017-01-14 10:40] MED LIST changes: -BENT20TA PO; +DEPO150I IM; -NORC5TAB PO; -ZANT150T2 PO
[2017-01-14] MEDS ORDERED: IOHEXOL 350 MG/ML 10 ML VIAL (for RAD DIAG) IVCONTRAST ONE (10:41)
[2017-01-14 10:42] VITALS: BP 144/82; PULSE 60; RESP 16; TEMP 98.5; O2SAT 97
[2017-01-14] MEDS ORDERED: SODIUM CHLOR 0.9% 1000 ML INJ 1,000 ML IV SCH (11:05)
--- NOTE | 2017-01-14 11:12 | PD ---
HPI Chief Complaint: GI Complaint Time Seen by Provider: 11:01 Travel History International Travel<30 days: No Contact w/Intl Traveler<30days: No Traveled to known affect area: No History of Present Illness HPI 21-year-old female complains of abdominal pain with nausea vomiting diarrhea. Patient states that the symptoms started 4 days ago. Patient state abdominal pain in cramping pain diffuse over the abdomen. Patient denies any pain radiation. Patient denies any blood or mucus in the stool. Patient denies any recent travel. Patient denies any fever chills. Patient denies any headache. Patient denies any chest pain or shortness of breath. Patient denies any vaginal discharge or bleeding. Patient denies any dysuria or frequency. PFSH Past Medical History Developmental Delay: No Diminished Hearing: No Genitourinary: Yes (HX UTI) Hiatal Hernia: Yes Immunizations Current: Yes Tetanus Vaccination: Unknown ?: Unknown : 1 Para: 1 Past Surgical History Abdominal Surgery: Yes (UMBILICAL HERNIA REPAIR) Social History Alcohol Use: No Tobacco Use: No Substance Use: No Allergies-Medications (Allergen,Severity, Reaction): Coded Allergies: morphine (Unverified Allergy, Intermediate, ITCHING, 01/14/17) hydromorphone (Verified Allergy, Unknown, 01/14/17) Reported Meds & Prescriptions Reported Meds & Active Scripts Active Depo-Provera Inj (Medroxyprogesterone Inj) 150 Mg/Ml Inj 150 Mg IM Q90D 90 Days Review of Systems General / Constitutional: No: Fever Eyes: No: Visual changes HENT: No: Headaches Cardiovascular: No: Chest Pain or Discomfort Respiratory: No: Shortness of Breath Gastrointestinal: Positive: Nausea, Vomiting, Diarrhea, Abdominal Pain Genitourinary: No: Dysuria Musculoskeletal: No: Pain Skin: No Rash Neurologic: No: Weakness Psychiatric: No: Depression Endocrine: No: Polydipsia Hematologic/Lymphatic: No: Easy Bruising Physical Exam Narrative GENERAL: Well-nourished, well-developed patient. SKIN: Focused skin assessment warm/dry. HEAD: Normocephalic. EYES: No scleral icterus. No injection or drainage. NECK: Supple, trachea midline. No JVD or lymphadenopathy. CARDIOVASCULAR: Regular rate and rhythm without murmurs, gallops, or rubs. RESPIRATORY: Breath sounds equal bilaterally. No accessory muscle use. GASTROINTESTINAL: Abdomen soft, nondistended. Patient has mild diffuse tenderness over the abdomen. No rebound tenderness. No mass. MUSCULOSKELETAL: No cyanosis, or edema. BACK: Nontender without obvious deformity. No CVA tenderness. Neurologic exam normal. Data Data Last Documented VS Vital Signs Date Time Temp Pulse Resp B/P (MAP) Pulse Ox O2 Delivery O2 Flow Rate FiO2 01/14/17 11:17 70 17 110/55 (73) 100 Room Air 01/14/17 10:42 98.5 Orders Orders Complete Blood Count With Diff (01/14/17 11:05) Comprehensive Metabolic Panel (01/14/17 11:05) Lipase (01/14/17 11:05) Urinalysis - C+S If Indicated (01/14/17 11:05) Ct Abd/Pel W Iv Contrast(Rout) (01/14/17 11:05) Iv Access Insert/Monitor (01/14/17 11:05) Ecg Monitoring (01/14/17 11:05) Oximetry (01/14/17 11:05) Ondansetron Inj (Zofran Inj) (01/14/17 11:15) Sodium Chlor 0.9% 1000 Ml Inj (Ns 1000 M (01/14/17 11:05) Sodium Chloride 0.9% Flush (Ns Flush) (01/14/17 11:15) Vascular Access Team Consult/P PRN (01/14/17 11:57) Vascular Poc Ultrasound (01/14/17 ) Urine Culture (01/14/17 11:30) Ketorolac Inj (Toradol Inj) (01/14/17 13:00) Iohexol 350 Inj (Omnipaque 350 Inj) (01/14/17 10:41) Labs Laboratory Tests Test 01/14/17 11:30 01/14/17 11:50 Urine Color YELLOW Urine Turbidity HAZY Urine pH 6.0 Urine Specific [place] 1.032 Urine Protein 30 mg/dL Urine Glucose (UA) NEG mg/dL Urine Ketones NEG mg/dL Urine Occult Blood NEG Urine Nitrite NEG Urine Bilirubin NEG Urine Urobilinogen LESS THAN 2.0 MG/DL Urine Leukocyte Esterase TRACE Urine RBC 2 /hpf Urine WBC 2 /hpf Urine Squamous Epithelial Cells 9 /hpf Urine Bacteria MOD /hpf Urine Mucus MANY /lpf Microscopic Urinalysis Comment CULTURE INDICATED White Blood Count 9.4 TH/MM3 Red Blood Count 4.60 MIL/MM3 Hemoglobin 11.4 GM/DL Hematocrit 35.6 % Mean Corpuscular Volume 77.3 FL Mean Corpuscular Hemoglobin 24.8 PG Mean Corpuscular Hemoglobin Concent 32.0 % Red Cell Distribution Width 16.4 % Platelet Count 249 TH/MM3 Mean Platelet Volume 9.7 FL Neutrophils (%) (Auto) 41.7 % Lymphocytes (%) (Auto) 50.2 % Monocytes (%) (Auto) 6.6 % Eosinophils (%) (Auto) 0.8 % Basophils (%) (Auto) 0.7 % Neutrophils # (Auto) 3.9 TH/MM3 Lymphocytes # (Auto) 4.7 TH/MM3 Monocytes # (Auto) 0.6 TH/MM3 Eosinophils # (Auto) 0.1 TH/MM3 Basophils # (Auto) 0.1 TH/MM3 CBC Comment AUTO DIFF Differential Comment AUTO DIFF CONFIRMED Ovalocytes 1+ Blood Urea Nitrogen 7 MG/DL Creatinine 0.54 MG/DL Random Glucose 78 MG/DL Total Protein 8.6 GM/DL Albumin 3.7 GM/DL Calcium Level 9.0 MG/DL Alkaline Phosphatase 92 U/L Aspartate Amino Transf (AST/SGOT) 25 U/L Alanine Aminotransferase (ALT/SGPT) 23 U/L Total Bilirubin 0.3 MG/DL Sodium Level 137 MEQ/L Potassium Level 4.7 MEQ/L Chloride Level 107 MEQ/L Carbon Dioxide Level 21.4 MEQ/L Anion Gap 9 MEQ/L Estimat Glomerular Filtration Rate 172 ML/MIN Lipase 75 U/L MDM Medical Decision Making Medical Screen Exam Complete: Yes Emergency Medical Condition: Yes Interpretation(s) 1343 PM. CBC within normal limit. WBC 9.4. 50 lymphocytes. CMP within normal limit. UA is positive for bacteria. [address] scan abdomen pelvis negative for acute pathology. Differential Diagnosis Differential diagnosis including gastroenteritis, gastritis, PUD, pancreatitis, cholecystitis, colitis, UTI, pyelonephritis, nephrolithiasis, appendicitis. Narrative Course 21-year-old female with abdominal pain and nausea vomiting diarrhea. Normal saline solution 1 L IV bolus. Zofran 4 mg IV. Diagnosis Primary Impression: Gastroenteritis Patient Instructions: General Instructions Additional Instructions: Clear fluids today and advance as tolerated. Take medication as needed. Follow -up with personal physician. Return if persistent problem or worse. Med/Other Pt SpecificInfo: Prescription(s) given Scripts Diphenoxylate-Atropine (Lomotil) 2.5-0.025 Mg Tab 1 TAB PO Q6H Y for DIARRHEA, #10 TAB 0 Refills Prov: Kai Iraheta MD 01/14/17 Dicyclomine (Bentyl) 10 Mg Cap 10 MG PO TID Y for Bowel Management, #15 CAP 0 Refills Prov: Kai Iraheta MD 01/14/17 Ondansetron Odt (Zofran Odt) 4 Mg Tab 4 MG SL Q6HR Y for Nausea/Vomiting, #10 TAB 0 Refills Prov: Kai Iraheta MD 01/14/17 Disposition: 01 DISCHARGE HOME Condition: Stable Kai Iraheta MD Jan 14, 2017 11:12
[2017-01-14] MEDS ORDERED: SODIUM CHLORIDE 0.9% FLUSH 10 ML FLUSH IV FLUSH PRN (11:15)
[2017-01-14] MEDS ORDERED: ONDANSETRON HCL 4 MG/2 ML VIAL IVP ONE (11:15)
[2017-01-14 11:17] VITALS: BP 110/55; PULSE 70; RESP 17; O2SAT 100
[2017-01-14 12:09] LABS: AUTOMATED NEUTROPHIL # 3.9 TH/MM3 (1.8-7.7); BASOPHIL # 0.1 TH/MM3 (0-0.2); BASOPHIL % 0.7 % (0.0-2.0); EOSINOPHIL # 0.1 TH/MM3 (0-0.4); EOSINOPHIL % 0.8 % (0.0-4.0); HEMATOCRIT 35.6 % (35.0-46.0); LYMPH % 50.2 % (9.0-44.0); LYMPHOCYTE # 4.7 TH/MM3 (1.0-4.8); MEAN CELL VOLUME 77.3 FL (80.0-100.0); MEAN CORPUSCULAR HEMOGLOBIN 24.8 PG (27.0-34.0); MONO % 6.6 % (0.0-8.0); NEUT % 41.7 % (16.0-70.0); PLATELET COUNT 249 TH/MM3 (150-450); RED CELL DISTRIBUTION WIDTH 16.4 % (11.6-17.2); WHITE BLOOD COUNT 9.4 TH/MM3 (4.0-11.0)
[2017-01-14 12:20] LABS: HEMO FLAGS AUTO DIFF
[2017-01-14 12:32] LABS: ALT (GPT) 23 U/L (10-53); ANION GAP 9 MEQ/L (5-15); AST (GOT) 25 U/L (15-37); BICARBONATE 21.4 MEQ/L (21.0-32.0); BLOOD UREA NITROGEN 7 MG/DL (7-18); CHLORIDE 107 MEQ/L (98-107); GLOMERULAR FILTRATION RATE 172 ML/MIN (>89); POTASSIUM 4.7 MEQ/L (3.5-5.1); SODIUM (NA) 137 MEQ/L (136-145)
[2017-01-14 12:34] LABS: ALKALINE PHOSPHATASE 92 U/L (45-117); TOTAL BILIRUBIN ADULT 0.3 MG/DL (0.2-1.0)
[2017-01-14 12:38] LABS: BACTERIA, URINE MOD /hpf; BLOOD, URINE NEG (NEG); COMMENT (UR) CULTURE INDICATED; CULTURE IF INDICATED CULTURE INDICATED; GLUCOSE,URINE NEG (NEG); KETONE, URINE NEG (NEG); MUCUS URINE MANY /lpf (OCC); NITRITE,URINE NEG (NEG); SQUAMOUS EPITHELIAL CELL URINE 9 /hpf (0-5); URINE COLOR YELLOW (YELLW/STRAW)
[2017-01-14] MEDS ORDERED: KETOROLAC TROMETHAMINE 30 MG/ML (IVP) VIAL IV PUSH ONE (13:00)
[2017-01-14 13:10] LABS: OVALOCYTES 1+ (NORMAL); SCAN/DIFF AUTO DIFF CONFIRMED
--- NOTE | 2017-01-14 14:05 | RADRPT ---
EXAM DATE/TIME: 01/14/2017 13:27 [facility] COMPARISON: No previous studies available for comparison. INDICATIONS : Upper abdomen pain for five days with vomiting. IV CONTRAST: 96 cc Omnipaque 350 (iohexol) IV ORAL CONTRAST: No oral contrast ingested. RADIATION DOSE: 13.61 CTDIvol (mGy) MEDICAL HISTORY : Hernia, hiatal. SURGICAL HISTORY : Umbilical hernia repair. ENCOUNTER: Initial ACUITY: 4 - 6 days PAIN SCALE: 7/10 LOCATION: Bilateral upper quadrant TECHNIQUE: Volumetric scanning of the abdomen and pelvis was performed. Using automated exposure control and ad justment of the mA and/or kV according to patient size, radiation dose was kept as low as reasonably achievable to obtain optimal diagnostic quality images. DICOM format image data is available electro nically for review and comparison. FINDINGS: LOWER LUNGS: The visualized lower lungs are clear. LIVER: Homogeneous density without lesion. There is no dilation of the biliary tree. No calcified gallston es. SPLEEN: Normal size without lesion. PANCREAS: Within normal limits. KIDNEYS: Normal in size and shape. There is no mass, stone or hydronephrosis. ADRENAL GLANDS: Within normal limits. VASCULAR: There is no aortic aneurysm. BOWEL/MESENTERY: The stomach, small bowel, and colon demonstrate no acute abnormality. There is no free intraperitone al air or fluid. No inflammatory changes. The appendix is unremarkable. ABDOMINAL WALL: Within normal limits. RETROPERITONEUM: There is no lymphadenopathy. BLADDER: No wall thickening or mass. REPRODUCTIVE: Within normal limits. INGUINAL: Nonspecific inguinal lymph nodes are noted bilaterally. No inguinal hernia. MUSCULOSKELETAL: Within normal limits for patient age. CONCLUSION: 1. Few nonspecific bilateral inguinal lymph nodes are demonstrated. 2. Otherwise, unremarkable CT scan of the abdomen and pelvis. Nathan Elena MD on January 14, 2017 at 14:00 Board Certified Radiologist. This report was verified electronically.
[2017-01-14] MEDS ORDERED: DICY10 PO (14:36)
[2017-01-14] MEDS ORDERED: ZOFR4TAB3 SL (14:36)
[2017-01-14] MEDS ORDERED: LOMO2.5T PO (14:36)
[2017-01-14 15:01] VITALS: BP 118/68
[2017-01-19] MEDS ORDERED: DEPO150I IM ×2 (14:02→14:04)
== END 2017-01-14 15:03 | disposition home or self-care (01) ==
LOC: NEPD 10:40
DX: K52.9 Noninfective gastroenteritis and colitis, unspecified (principal)
CPT/HCPCS: 74177; 80053; 81001; 83690; 85025; 87086; 96361; 96374; 96375; 99285; J1885; J2405; J7030; Q9967

== ENCOUNTER 2017-01-29 15:35 | Emergency (ER) | payer MEDICAID ==
[~2017-01-29] VITALS: Ht 170.2 cm; Wt 113.0 kg
[~2017-01-29 15:35] MED LIST changes: +DICY10 PO; +LOMO2.5T PO; +ZOFR4TAB3 SL
[2017-01-29 15:37] VITALS: BP 117/82; PULSE 100; RESP 28; TEMP 98.9; O2SAT 100
[2017-01-29] MEDS ORDERED: SODIUM CHLORIDE 0.9% FLUSH 10 ML FLUSH IVF PRN (15:45)
[2017-01-29] MEDS ORDERED: LORazepam 2 MG/ML VIAL IV PUSH ONE (15:45)
--- NOTE | 2017-01-29 15:46 | PD ---
HPI Chief Complaint: Anxiety Time Seen by Provider: 15:38 Travel History International Travel<30 days: No Contact w/Intl Traveler<30days: No Traveled to known affect area: No History of Present Illness HPI 21-year-old female presents to the ED via EMS for evaluation of foreign body sensation in the throat after episode of vomiting at work. On arrival the patient is hyperventilating, moaning, crying, panicking and unable to provide any meaningful history. O2 sats 100% in route via EMS report. I attempted to calm the patient but was unsuccessful. She was administered 1 mg Ativan IM. PFSH Past Medical History Developmental Delay: No Diminished Hearing: No Genitourinary: Yes (HX UTI) Hiatal Hernia: Yes Immunizations Current: Yes ?: Unknown : 1 Para: 1 Past Surgical History Abdominal Surgery: Yes (UMBILICAL HERNIA REPAIR) Social History Alcohol Use: No Tobacco Use: No Substance Use: No Allergies-Medications (Allergen,Severity, Reaction): Coded Allergies: morphine (Unverified Allergy, Intermediate, ITCHING, 01/19/17) hydromorphone (Verified Allergy, Unknown, 01/19/17) Reported Meds & Prescriptions Reported Meds & Active Scripts Active Magic Mouthwash Adult Liq (Multi-Ingredient Mouthwash/Gargle) 120 Ml Susp 5 Ml SWISH-SWAL ACHS 5 Days Each 5mL contains: Nystatin 200,000units, Diphenhydramine 4.25mg, Viscous Lidocaine 10mg, Sprague syrup 0.8 mL Flonase Nasal Jasper (Fluticasone Nasal [place]asper) 50 Mcg/Act Jasper 50 Mcg EACH NARE BID 14 Days Bee-D 24 Hour Allergy (Fexofenadine-Pseudoephedrine ER 24 HR) 180-240 Toribio 1 Tab PO DAILY Lomotil (Diphenoxylate-Atropine) 2.5-0.025 Mg Tab 1 Tab PO Q6H PRN Bentyl (Dicyclomine HCl) 10 Mg Cap 10 Mg PO TID PRN Zofran Odt (Ondansetron Odt) 4 Mg Tab 4 Mg SL Q6HR PRN Depo-Provera Inj (Medroxyprogesterone Inj) 150 Mg/Ml Inj 150 Mg IM Q90D 90 Days Review of Systems Except as stated in HPI: all other systems reviewed are Neg Physical Exam Narrative GENERAL: Obese black female in no acute distress. SKIN: Warm and dry. HEAD: Normocephalic. Atraumatic. EYES: No scleral icterus. No injection or drainage. PERRLA. EOMI. ENT: Pearly conley tympanic membranes bilaterally. Nasal mucosa is moist. Oropharynx without erythema, edema or exudate. Moderate posterior cobblestoning. NECK: Supple, trachea midline. No JVD or lymphadenopathy. CARDIOVASCULAR: Regular rate and rhythm without murmurs, gallops, or rubs. RESPIRATORY: Breath sounds clear and equal bilaterally. No accessory muscle use. GASTROINTESTINAL: Abdomen soft, non-tender, nondistended. + Bowel sounds MUSCULOSKELETAL: No cyanosis, or edema. Moves extremities spontaneously. BACK: Nontender without obvious deformity. No CVA tenderness. Data Data Last Documented VS Vital Signs Date Time Temp Pulse Resp B/P (MAP) Pulse Ox O2 Delivery O2 Flow Rate FiO2 01/29/17 18:04 76 16 119/56 (77) 100 01/29/17 16:05 Room Air 01/29/17 15:37 98.9 Orders Orders Electrocardiogram (01/29/17 15:38) Chest, Single Ap (01/29/17 15:38) Ecg Monitoring (01/29/17 15:38) Iv Access Insert/Monitor (01/29/17 15:38) Oximetry (01/29/17 15:38) Sodium Chloride 0.9% Flush (Ns Flush) (01/29/17 15:45) Ed Urine Pregnancytest Poc (01/29/17 15:38) Soft Tissue Neck (01/29/17 ) Lorazepam Inj (Ativan Inj) (01/29/17 16:15) Vascular Access Team Consult/P PRN (01/29/17 16:08) Vascular Poc Ultrasound (01/29/17 ) Ed Discharge Order (01/29/17 17:20) MDM Medical Decision Making Medical Screen Exam Complete: Yes Emergency Medical Condition: Yes Differential Diagnosis Posttussive emesis versus foreign body sensation versus foreign body versus anxiety attack versus other Narrative Course 21-year-old female presents to the ED via EMS for evaluation of foreign body sensation in the throat after episode of vomiting at work. On arrival the patient is hyperventilating, moaning, crying, panicking and unable to provide any meaningful history. O2 sats 100% in route via EMS report. I attempted to calm the patient but was unsuccessful. She was administered 1 mg Ativan IM. After approximately 15 minutes I reentered the room. Patient is calm, breathing normally, sipping water through a straw. She endorses sore throat but denies any difficulties with breathing or foreign body sensation. She states that she has had sinus congestion and nonproductive cough for the last few days. She endorses an episode of posttussive emesis at work today. She states that she felt as if something was stuck in her throat and became very anxious. ENT exam reveals posterior cobblestoning. Breath sounds clear and equal bilaterally. O2 sats remained near 100%. She denies difficulty swallowing water in the ED. Chest x-ray and soft tissue neck x-ray revealed no foreign body or infiltrate. Patient's prescribed Bee-D, Flonase for daily use. She is also prescribed Magic mouthwash for pharyngitis over the next few days. She is instructed to follow-up with her primary care provider. She indicated understanding of instructions and is agreeable with the care plan. She is stable and discharged home. Diagnosis Primary Impression: Anxiety Additional Impressions: Postnasal drip Vomiting Qualified Codes: R11.11 - Vomiting without nausea Pharyngitis Qualified Codes: J02.9 - Acute pharyngitis, unspecified Referrals: Primary Care Physician Additional Instructions: Rest, hydrate. Resume normal, gentle activities as tolerated. Take antihistamines and administered nasal spray daily as prescribed. Gargle and spit Magic mouthwash a few times a day as needed for throat pain. Follow-up with primary care provider. Return to the ED for any urgent or emergent medical condition. Med/Other Pt SpecificInfo: Prescription(s) given Scripts Gxhjzbkt-Lmdmbcpzdprwuaz-Wpizxprdj Liq (Magic Mouthwash Adult Liq) 120 Ml Susp 5 ML SWISH-SWAL ACHS for Mouth sores for 5 Days, #120 ML 0 Refills Each 5mL contains: Nystatin 200,000units, Diphenhydramine 4.25mg, Viscous Lidocaine 10mg, Sprague syrup 0.8 mL Prov: Vicki Altamirano MD 01/29/17 Fluticasone Nasal [place] (Flonase Nasal [place]) 50 Mcg/Act Jasper 50 MCG EACH NARE BID for Allergies for 14 Days, #1 BOTTLE 0 Refills Prov: Vicki Altamirano MD 01/29/17 Fexofenadine-Pseudoephedrine ER 24 HR (Bee-D 24 Hour Allergy) 180-240 Toribio 1 TAB PO DAILY for Allergy Management, #30 TAB 0 Refills Prov: Vicki Altamirano MD 01/29/17 Disposition: 01 DISCHARGE HOME Condition: Stable Saadia Hermosillo Jan 29, 2017 15:45
[2017-01-29 16:05] VITALS: O2SAT 100
[2017-01-29] MEDS ORDERED: LORazepam 2 MG/ML VIAL IM ONE (16:15)
--- NOTE | 2017-01-29 16:31 | RADRPT ---
EXAM DATE/TIME: 01/29/2017 16:20 [facility] COMPARISON: No previous studies available for comparison. INDICATIONS : Wheezing. MEDICAL HISTORY : None. SURGICAL HISTORY : None. ENCOUNTER: Initial ACUITY: 1 day PAIN SCORE: 0/10 LOCATION: chest FINDINGS: A single view of the chest demonstrates the lungs to be symmetrically aerated without evidence of mas s, infiltrate or effusion. The cardiomediastinal contours are unremarkable. Osseous structures are intact. CONCLUSION: No acute disease. Basim Darden MD on January 29, 2017 at 16:28 Board Certified Radiologist. This report was verified electronically.
--- NOTE | 2017-01-29 16:56 | RADRPT ---
EXAM DATE/TIME: 01/29/2017 16:28 [facility] COMPARISON: CHEST SINGLE AP, January 29, 2017, 16:20. INDICATIONS : Patient states they ate lunch today and started vomiting after. Once they were done vomiting they sta te that it felt like something was stuck in their throat and they have throat pain. MEDICAL HISTORY : None. SURGICAL HISTORY : None. ENCOUNTER: Initial ACUITY: 1 day PAIN SCORE: 10/10 LOCATION: Soft tissue neck FINDINGS: Two view examination of the soft tissues of the neck demonstrates the hypopharyngeal airway to have a grossly normal configuration. The trachea is midline. No radiopaque foreign bodies are seen. CONCLUSION: 1. Negative examination. Tab Javier MD on January 29, 2017 at 16:54 Board Certified Radiologist. This report was verified electronically.
[2017-01-29] MEDS ORDERED: MAGICADU2 SWISH-SWAL (17:20)
[2017-01-29] MEDS ORDERED: FEXO1TAB97 PO (17:20)
[2017-01-29] MEDS ORDERED: FLUT1SPR5 EACH NARE (17:20)
[2017-01-29 18:04] VITALS: BP 119/56
--- NOTE | 2017-01-30 09:15 | EKG ---
Date Performed: 01/29/2017 Time Performed: 17:11:22 PTAGE: 21 years EKG: Sinus rhythm NORMAL ECG NO PREVIOUS TRACING DOCTOR: Julián Cruz Interpretating Date/Time 01/30/2017 09:14:45
== END 2017-01-29 18:31 | disposition home or self-care (01) ==
LOC: NEPC 15:35
DX: F41.9 Anxiety disorder, unspecified (principal); R09.82 Postnasal drip; R11.11 Vomiting without nausea; J02.9 Acute pharyngitis, unspecified; R05 Cough
CPT/HCPCS: 70360; 71010; 84703; 93005; 96372; 96374; 99285; J2060

== ENCOUNTER 2017-02-08 11:59 | Emergency (ER) | payer MEDICAID ==
[~2017-02-08] VITALS: Ht 170.2 cm; Wt 97.0 kg
[~2017-02-08 11:59] MED LIST changes: +FEXO1TAB97 PO; +FLUT1SPR5 EACH NARE; +MAGICADU2 SWISH-SWAL
[2017-02-08 12:01] VITALS: BP 144/84; PULSE 92; RESP 16; TEMP 99; O2SAT 99
[2017-02-08 12:18] VITALS: BP 137/93; PULSE 85; RESP 19; TEMP 98.9; O2SAT 100
--- NOTE | 2017-02-08 12:42 | PD ---
HPI Chief Complaint: Abdominal Pain Time Seen by Provider: 12:21 Travel History International Travel<30 days: No Contact w/Intl Traveler<30days: No Traveled to known affect area: No History of Present Illness HPI The patient was seen and examined in the presence of the nurse. This patient complains of having a cyst between her buttocks. She denies drainage or fever. The area is sore. Symptoms exacerbated by sitting. No alleviating factors. Duration 3 days. Severity is moderate. PFSH Past Medical History Medical History: Denies Significant Hx Developmental Delay: No Diminished Hearing: No Genitourinary: Yes (HX UTI) Hiatal Hernia: Yes Immunizations Current: Yes Tetanus Vaccination: Unknown Influenza Vaccination: No ?: Unknown LMP: on depo : 1 Para: 1 Past Surgical History Abdominal Surgery: Yes (UMBILICAL HERNIA REPAIR) Social History Alcohol Use: No Tobacco Use: No Substance Use: No Allergies-Medications (Allergen,Severity, Reaction): Coded Allergies: morphine (Unverified Allergy, Intermediate, ITCHING, 02/08/17) hydromorphone (Verified Allergy, Unknown, 02/08/17) Reported Meds & Prescriptions Reported Meds & Active Scripts Active Tramadol (Tramadol HCl) 50 Mg Tab 50 Mg PO Q6H PRN Bactrim DS (Sulfamethoxazole-Trimethoprim) 800-160 Mg Tab 1 Tab PO BID Magic Mouthwash Adult Liq (Multi-Ingredient Mouthwash/Gargle) 120 Ml Susp 5 Ml SWISH-SWAL ACHS 5 Days Each 5mL contains: Nystatin 200,000units, Diphenhydramine 4.25mg, Viscous Lidocaine 10mg, Sprague syrup 0.8 mL Flonase Nasal [place] (Fluticasone Nasal [place]) 50 Mcg/Act [place] 50 Mcg EACH NARE BID 14 Days Bee-D 24 Hour Allergy (Fexofenadine-Pseudoephedrine ER 24 HR) 180-240 Toribio 1 Tab PO DAILY Lomotil (Diphenoxylate-Atropine) 2.5-0.025 Mg Tab 1 Tab PO Q6H PRN Bentyl (Dicyclomine HCl) 10 Mg Cap 10 Mg PO TID PRN Zofran Odt (Ondansetron Odt) 4 Mg Tab 4 Mg SL Q6HR PRN Depo-Provera Inj (Medroxyprogesterone Inj) 150 Mg/Ml Inj 150 Mg IM Q90D 90 Days Review of Systems General / Constitutional: No: Fever Eyes: No: Visual changes HENT: No: Headaches Cardiovascular: No: Chest Pain or Discomfort Respiratory: No: Shortness of Breath Gastrointestinal: No: Abdominal Pain Genitourinary: No: Dysuria Musculoskeletal: Positive: Pain Skin: No Rash Neurologic: No: Weakness Psychiatric: No: Depression Endocrine: No: Polydipsia Hematologic/Lymphatic: No: Easy Bruising Physical Exam Narrative GENERAL: Well-nourished, well-developed patient in no apparent distress. SKIN: Focused skin assessment reveals no rash and nodules. Skin is Warm and dry. HEAD: Atraumatic. Normocephalic. EYES: Pupils equal and round. No scleral icterus. No injection or drainage. ENT: No nasal bleeding or discharge. Mucous membranes pink and moist. NECK: Trachea midline. No JVD. CARDIOVASCULAR: Regular rate and rhythm. No murmur appreciated. RESPIRATORY: No accessory muscle use. Clear to auscultation. Breath sounds equal bilaterally. GASTROINTESTINAL: Abdomen soft, non-tender, nondistended. Hepatic and splenic margins not palpable. MUSCULOSKELETAL: No obvious deformities. No clubbing. No cyanosis. No edema. NEUROLOGICAL: Awake and alert. No obvious cranial nerve deficits. Motor grossly within normal limits. Normal speech. PSYCHIATRIC: Appropriate mood and affect; insight and judgment normal. Buttocks: Patient has a fluctuant abscess at the top of the gluteal crease. No active drainage. No surrounding cellulitis. Data Data Last Documented VS Vital Signs Date Time Temp Pulse Resp B/P (MAP) Pulse Ox O2 Delivery O2 Flow Rate FiO2 02/08/17 12:18 98.9 85 19 137/93 (108) 100 Room Air Orders Orders Ed Urine Pregnancytest Poc (02/08/17 12:37) Wound Culture And Gram Stain (02/08/17 12:37) MDM Medical Decision Making Medical Screen Exam Complete: Yes Emergency Medical Condition: Yes Medical Record Reviewed: Yes Differential Diagnosis Abscess, pilonidal cyst, boil Narrative Course I have reviewed the patient's electronic medical record. We discussed options. She gives verbal consent to incision and drainage. Procedure note: With nurse in attendance, I anesthetized the area with ethyl chloride spray. She has a fluctuant abscess at the top of the gluteal crease I used an 11 blade scalpel to open up the abscess. I released a large quantity of thick yellow pus. I obtained a culture. I used a blunt hemostat to break up loculations. I expressed all the pus Tolerated well Patient was cleaned up and a dressing applied I am prescribing her 10 days of Bactrim DS and some tramadol for pain relief Diagnosis Primary Impression: Abscess and cellulitis of gluteal region Additional Impression: Encounter for incision and drainage procedure Additional Instructions: The patient was advised to follow up with their physician and return if they worsen. The patient was warned about potential sedation for the medications they will receive on prescription. Use warm compresses Med/Other Pt SpecificInfo: Prescription(s) given Scripts Tramadol (Tramadol) 50 Mg Tab 50 MG PO Q6H Y for PAIN, #15 TAB 0 Refills Prov: Romain Yeager MD 02/08/17 Sulfamethoxazole-Trimethoprim (Bactrim DS) 800-160 Mg Tab 1 TAB PO BID for Infection, #20 TAB 0 Refills Prov: Romain Yeager MD 02/08/17 Disposition: 01 DISCHARGE HOME Condition: Stable Romain Yeager MD Feb 08, 2017 12:42
[2017-02-08] MEDS ORDERED: BACT800T5 PO (14:50)
[2017-02-08] MEDS ORDERED: TRAM50TA PO (14:50)
[2017-02-08 15:20] VITALS: BP 119/89; PULSE 91; RESP 18; O2SAT 99
== END 2017-02-08 15:35 | disposition home or self-care (01) ==
LOC: NEPD 11:59
DX: L02.31 Cutaneous abscess of buttock (principal); L03.317 Cellulitis of buttock; Z79.899 Other long term (current) drug therapy; Z88.5 Allergy status to narcotic agent
CPT/HCPCS: 10060; 84703; 87070